=== PATIENT | female | born 1980 | race Caucasian/White ===

== ENCOUNTER 2019-02-14 15:45 | Emergency (ER) | payer MEDICAID, OTHER ==
[~2019-02-14] VITALS: Ht 167.6 cm; Wt 81.0 kg
[2019-02-14 16:09] VITALS: BP 138/78; PULSE 85; RESP 16; Ht 167.6 cm; Wt 81.0 kg
[2019-02-14] MEDS ORDERED: IBUPROFEN 600 MG TAB PO ONE (16:30)
[2019-02-14] MEDS ORDERED: IBUP-1542 PO (17:22)
--- NOTE | 2019-02-14 17:25 | ERD ---
ER Documentation Chief Complaint Chief Complaint pt is bib RA with c/o shoulder and back pain s/p fall HPI 38-year-old female slipped over uneven surface in a store today. She fell backwards and caught herself with her right arm. She has neck pain, right shoulder pain and right elbow pain. She has no restricted range of motion weakness. There is no history of loss of consciousness, vomiting, visual changes, deficits, additional symptoms. ROS All systems reviewed and are negative except as per history of present illness. Medications Home Meds Active Scripts Ibuprofen* (Motrin*) 600 Mg Tab, 600 MG PO Q6, #20 TAB Prov:LOGAN NGUYỄN MD 02/14/19 Allergies Allergies: Coded Allergies: Penicillins (Verified Allergy, Unknown, 02/14/19) PMhx/Soc Medical and Surgical Hx: pt denies Medical Hx, pt denies Surgical Hx Hx Alcohol Use: No Hx Substance Use: No Hx Tobacco Use: No Smoking Status: Never smoker FmHx Family History: No diabetes, No coronary disease, No other Physical Exam Vitals Vital Signs Date Temp Pulse Resp B/P (MAP) Pulse Ox O2 O2 Flow FiO2 Time Delivery Rate 02/14/19 98.4 85 16 138/78 99 16:09 (98) Physical Exam Const: No acute distress Head: Atraumatic Eyes: Normal Conjunctiva ENT: Normal External Ears, Nose and Mouth. Neck: Full range of motion. No meningismus. Mild tenderness C5-C6 cervical paraspinous area without midline tenderness or deformities. Resp: Clear to auscultation bilaterally Cardio: Regular rate and rhythm, no murmurs Abd: Soft, non tender, non distended. Normal bowel sounds Skin: No petechiae or rashes Back: No midline or flank tenderness Ext: No cyanosis, or edema. Tenderness right scapula and trapezius and right rotator cuff capsule. No deformities. No restricted range of motion set mildly due to pain. No deficits. Mild tenderness around the right elbow without significant swelling, effusion, deformities. Right upper extremity is ne urovascularly intact. Neur: Awake and alert Psych: Normal Mood and Affect Results 24 hrs Current Medications Medications Dose Sig/Sinan Start Time Status Last (Trade) Ordered Route PRN Stop Time Admin Dose Reason Admin Ibuprofen 600 mg ONCE ONCE 02/14/19 DC 02/14/19 (Motrin) PO 16:30 16:29 02/14/19 16:31 Procedures/MDM X-ray C spine 3V Interpreted by me: Bones: No fracture Joints: No dislocation Foreign body: None. Impression-normal C-spine x-ray X-ray right shoulder 3V Interpreted by me: Bones: No fracture Joints: No dislocation Foreign body: None impression-normal right shoulder x-ray X-ray right Elbow 3V Interpreted by me: Fat Pads: Normal Bones: No fracture Joints: No dislocation Foreign body: None. Impression-normal right elbow x-ray Patient given Tylenol for pain. Patient presents after mechanical fall today without signs or symptoms of head injury, no evidence of fracture, dislocation, deficits, additional concerning signs or symptoms. She will be discharged home with ibuprofen, primary care follow-up and return precautions. The patient was stable with no new complaints during the ER course. Clinically, there is no current evidence to suggest meningitis, sepsis, acute abdomen, pneumonia, stroke, acute coronary syndrome, pulmonary embolism, aortic dissection or any other emergent condition appearing to require further evaluation or hospitalization. Patient counseled regarding my diagnostic impression and care plan. Prior to discharge all questions answered. Pt agrees with treatment plan and understands strict return precautions. Pt is instructed to follow up with primary care provider within 24-48 hours. Precautionary instructions provided including instructions to return to the ER if not improving or for any worsening or changing symptoms or concerns. Departure Diagnosis: Primary Impression: Fall with no significant injury Encounter type: initial encounter Qualified Codes: W19.XXXA - Unspecified fall, initial encounter Condition: Stable Patient Instructions: Fall, Mechanical Referrals: NO PRIMARY,CARE PHYSICIAN (PCP) Additional Instructions: Examines normal hoy. Cheque otro vez con lott doctor primario en el proximo hook or regresa para mas o nueva simptomas. LOGAN NGUYỄN MD Feb 14, 2019 17:25
== END 2019-02-14 17:35 | disposition home or self-care (01) ==
LOC: FTE 15:45 → EDBD 15:45 → FTE 17:35
DX: M25.511 Pain in right shoulder (principal); M54.9 Dorsalgia, unspecified; M25.521 Pain in right elbow; M54.2 Cervicalgia
CPT/HCPCS: 72040; 73030; 73080; Z7502; Z7610